=== PATIENT | female | born 1990 | race Caucasian/White ===

== ENCOUNTER 2019-06-19 02:57 | Observation (INO) ==
[2019-06-19] MEDS ORDERED: Ondansetron 4 MG/2 ML VIAL IVP STA (03:46)
[2019-06-19] MEDS: 0.9 % Sodium Chloride 1,000 ML IVC SCH ×2 (04:07→05:00)
[2019-06-19 04:28] LABS: Basophils % 0.3 %; Eosinophils # 0.1 K/mcL (0.0-0.6); Eosinophils % 1.7 %; Hematocrit 38.3 % (35.3-44.9); Hemoglobin 12.9 g/dL (11.5-15.4); Immature Granulocytes % 0.3 % (0-4); Lymphocytes # 1.6 K/mcL (0.6-4.6); Lymphocytes % 22.1 %; Mean Corpuscular HGB Conc 33.7 g/dL (31.6-35.5); Mean Corpuscular Hemoglobin 29.3 pg (28.0-33.3); Mean Corpuscular Volume 86.8 fL (83.0-100.0); Mean Platelet Volume 9.4 fL (9.4-12.4); Monocytes # 0.7 K/mcL (0.0-1.3); Monocytes % 9.3 %; Neutrophils # 4.7 K/mcL (1.6-8.9); Platelet Count 264 K/mcL (140-400); Red Blood Count 4.41 M/mcL (3.82-4.97); Red Cell Distribution Width 12.3 % (11.5-14.5); Segmented Neutrophils % 66.3 %
[2019-06-19 04:30] LABS: Bilirubin,Urine Negative (Negative); Blood,Urine Trace (Negative); Clarity,Urine Clear (Clear); Color,Urine Yellow (Yellow); Glucose,Urine (UA) Normal (Normal); Ketones,Urine Negative (Negative); Leukocyte Esterase,Urine Negative (Negative); Nitrite,Urine Negative (Negative); PH,Urine 7.5 pH Units (5.0-8.0); Protein,Urine Negative (Neg-Trace); Specific Gravity,Urine 1.009 (1.010-1.025); Urobilinogen,Urine Normal (Normal)
[2019-06-19 04:32] LABS: Bacteria,Urine None Seen per hpf (None-Few); Hyaline Casts,Urine None Seen per lpf (None-Few); RBC,Urine 0-3 per hpf (0-3); Squamous Epithelial Cell,Urine Many per lpf (None-Few); WBC,Urine 0-3 per hpf (0-3)
[2019-06-19 04:34] LABS: INR 0.9; Prothrombin Time 10.6 Seconds (9.4-12.1)
[2019-06-19] MEDS ORDERED: Isovue-370 500 ML BOTTLE IVP ONE (04:35)
[2019-06-19 04:36] LABS: Activated Partial Thrombo Time 27.5 Seconds (26.0-36.0)
[2019-06-19 05:56] LABS: Alanine Aminotransferase 19 Units/L (7-52); Albumin 3.6 g/dL (3.5-5.7); Albumin/Globulin Ratio 1.5 (1.1-2.2); Alkaline Phosphatase 49 Units/L (34-104); Aspartate Amino Transferase 20 Units/L (13-39); BUN/Creatinine Ratio 15 (6-26); Bilirubin,Indirect 0.3 mg/dL (0.0-1.0); Bilirubin,Total 0.3 mg/dL (0.3-1.0); Blood Urea Nitrogen 8 mg/dL (6-20); Calcium 8.2 mg/dL (8.6-10.3); Carbon Dioxide 22 mEq/L (23-29); Chloride 108 mEq/L (98-107); Globulin 2.4 g/dL (2.4-3.5); Glucose 88 mg/dL (70-105); Magnesium 1.5 mg/dL (1.6-2.6); Osmolality,Calculated 278 (280-300); Phosphorous 2.7 mg/dL (2.7-4.5); Potassium 3.5 mEq/L (3.5-5.1); Sodium 135 mEq/L (136-145); eGFR For African Americans > 60 (> 60); eGFR For Non-African Americans > 60 (> 60)
[2019-06-19 06:02] LABS: Adenovirus Not Detected (Not Detect); Bordetella Pertussis Not Detected (Not Detect); Chlamydophila pneumoniae Not Detected (Not Detect); Coronavirus 229E Not Detected (Not Detect); Coronavirus HKU1 Not Detected (Not Detect); Coronavirus NL63 Not Detected (Not Detect); Coronavirus OC43 Not Detected (Not Detect); Human Metapneumovirus Not Detected (Not Detect); Human Rhinovirus/Enterovirus Not Detected (Not Detect); Influenza A Subtype 2009 H1 Not Detected (Not Detect); Influenza B Not Detected (Not Detect); Mycoplasma pneumoniae Not Detected (Not Detect); Parainfluenza Virus 1 Not Detected (Not Detect); Parainfluenza Virus 2 Not Detected (Not Detect); Parainfluenza Virus 3 Not Detected (Not Detect); Parainfluenza Virus 4 Not Detected (Not Detect); Respiratory Syncytial Virus Not Detected (Not Detect)
[2019-06-19] MEDS ORDERED: Azithromycin 500 MG in D5% in Water 250 ML IVPB STA (06:07)
[2019-06-19] MEDS ORDERED: cefTRIAXone 1,000 MG in Water for inj. (sterile) 10 ML IVP ONE (06:07)
[2019-06-19] MEDS ORDERED: Naloxone 0.4 MG/ML INJ IVP PRN (07:48)
[2019-06-19] MEDS: Ondansetron 4 MG/2 ML VIAL IVP PRN (17:35)
[2019-06-19] MEDS: *HR* Heparin 5,000 UNIT/ML VIAL SQ SCH (17:36)
[2019-06-19] MEDS ORDERED: Acetaminophen 325 MG TABLET PO PRN (17:54)
[2019-06-19] MEDS: *HR* Promethazine 25 MG/ML VIAL IVP PRN (18:31)
[2019-06-20 01:09] LABS: Basophils % 0.4 %; Eosinophils # 0.2 K/mcL (0.0-0.6); Eosinophils % 3.9 %; Hematocrit 40.5 % (35.3-44.9); Hemoglobin 13.3 g/dL (11.5-15.4); Immature Granulocytes % 0.2 % (0-4); Lymphocytes # 1.9 K/mcL (0.6-4.6); Lymphocytes % 40.5 %; Mean Corpuscular HGB Conc 32.8 g/dL (31.6-35.5); Mean Corpuscular Hemoglobin 29.3 pg (28.0-33.3); Mean Corpuscular Volume 89.2 fL (83.0-100.0); Mean Platelet Volume 8.9 fL (9.4-12.4); Monocytes # 0.5 K/mcL (0.0-1.3); Monocytes % 11.1 %; Platelet Count 262 K/mcL (140-400); Red Blood Count 4.54 M/mcL (3.82-4.97); Red Cell Distribution Width 12.7 % (11.5-14.5); Segmented Neutrophils % 43.9 %; White Blood Count 4.6 K/mcL (4.3-11.1)
[2019-06-20 01:29] LABS: BUN/Creatinine Ratio 10 (6-26); Blood Urea Nitrogen 7 mg/dL (6-20); Calcium 9.2 mg/dL (8.6-10.3); Carbon Dioxide 25 mEq/L (23-29); Chloride 106 mEq/L (98-107); Glucose 88 mg/dL (70-105); Magnesium 2.3 mg/dL (1.6-2.6); Osmolality,Calculated 281 (280-300); Potassium 3.6 mEq/L (3.5-5.1); Sodium 137 mEq/L (136-145); eGFR For African Americans > 60 (> 60); eGFR For Non-African Americans > 60 (> 60)
[2019-06-20] MEDS: Ondansetron 4 MG/2 ML VIAL IVP PRN (06:21)
[2019-06-20] MEDS: *HR* Heparin 5,000 UNIT/ML VIAL SQ SCH (06:21)
[2019-06-20] MEDS ORDERED: Azithromycin 500 MG in 0.9 % Sodium Chloride 250 ML IVPB SCH (08:00)
[2019-06-20] MEDS: *HR* Promethazine 25 MG/ML VIAL IVP PRN (08:18)
[2019-06-20] MEDS ORDERED: cefTRIAXone 2,000 MG in 0.9 % Sodium Chloride Mini Bag 100 ML IVPB SCH (09:00)
[2019-06-20] MEDS ORDERED: Sennosides/Docusate Sodium TABLET PO SCH (11:05)
[2019-06-20] MEDS: 0.9 % Sodium Chloride 1,000 ML IVC SCH ×2 (12:16→14:17)
[2019-06-20 14:30] VITALS: BP 99/66
[2019-06-22 10:22] LABS: Mycoplasma pneumoniae IgG 0.11 U/L (<=0.09)
== END 2019-06-20 15:04 | disposition home or self-care (01) ==
LOC: 2NENU 02:57 → EMEROOARM 02:57 → SUATTDRO 07:48 → 2NENU 08:31 → 2NNU 21:56 → 3BNU 06-20 11:03
PROVIDERS: ADMIT Internal Medicine; ATTEND Internal Medicine

== ENCOUNTER 2022-01-24 16:37 | Observation (INO) ==
[2022-01-24] MEDS ORDERED: 0.9 % Sodium Chloride 1,000 ML IV ONE (20:56)
[2022-01-24 21:20] LABS: Basophils # 0.1 K/mcL (0.0-0.2); Basophils % 0.9 %; Eosinophils % 0.5 %; Hematocrit 41.4 % (35.3-44.9); Immature Granulocytes % 0.2 % (0-4); Lymphocytes # 2.8 K/mcL (0.6-4.6); Lymphocytes % 35.1 %; Mean Corpuscular HGB Conc 33.8 g/dL (31.6-35.5); Mean Corpuscular Volume 88.7 fL (83.0-100.0); Monocytes # 0.6 K/mcL (0.0-1.3); Neutrophils # 4.6 K/mcL (1.6-8.9); Platelet Count 327 K/mcL (140-400); Red Blood Count 4.67 M/mcL (3.82-4.97); Red Cell Distribution Width 11.9 % (11.5-14.5); Segmented Neutrophils % 56.3 %; White Blood Count 8.1 K/mcL (4.3-11.1)
[2022-01-24 21:45] LABS: Alanine Aminotransferase 15 Units/L (7-52); Albumin 4.5 g/dL (3.5-5.7); Albumin/Globulin Ratio 1.5 (1.1-2.2); Alkaline Phosphatase 57 Units/L (34-104); Aspartate Amino Transferase 21 Units/L (13-39); BUN/Creatinine Ratio 13 (6-26); Bilirubin,Total 0.6 mg/dL (0.3-1.0); Blood Urea Nitrogen 11 mg/dL (6-20); Carbon Dioxide 25 mEq/L (23-29); Chloride 101 mEq/L (98-107); Glucose 87 mg/dL (70-105); Lipase 32 Units/L (11-82); Osmolality,Calculated 281 (280-300); Potassium 3.9 mEq/L (3.5-5.1); Sodium 136 mEq/L (136-145); Total Protein 7.5 g/dL (6.4-8.9); Troponin I < 0.03 ng/mL (< 0.04)
[2022-01-24] MEDS: Ondansetron ODT 4 MG TAB.RAPDIS SL ONE ×2 (22:26→22:29)
[2022-01-24] MEDS ORDERED: Iopamidol - 370 500 ML MLS IVP ONE (22:32)
[2022-01-24] MEDS ORDERED: Morphine Sulfate 2 MG/ML SYRINGE IVP ONE ×2 (22:35→23:41)
[2022-01-24] MEDS ORDERED: Ondansetron 4 MG/2 ML VIAL IVP ONE (22:38)
[2022-01-24] MEDS ORDERED: Famotidine 20 MG/2 ML VIAL IVP ONE (22:38)
[2022-01-24 22:58] LABS: Bilirubin,Urine Negative (Negative); Blood,Urine Trace (Negative); Clarity,Urine Ex.Turbid (Clear); Color,Urine Yellow (Yellow); Glucose,Urine (UA) Normal (Normal); Ketones,Urine Trace mg/dL (Negative); Leukocyte Esterase,Urine Negative (Negative); Mucus,Urine Few per lpf (None-Few); Nitrite,Urine Negative (Negative); PH,Urine 7.5 pH Units (5.0-8.0); Protein,Urine 30 mg/dL (Neg-Trace); Specific Gravity,Urine 1.026 (1.010-1.025); Squamous Epithelial Cell,Urine Few per hpf (None-Few)
[2022-01-24] MEDS ORDERED: *HR* Promethazine 25 MG/ML VIAL IM ONE (23:42)
[2022-01-25] MEDS ORDERED: 0.9 % Sodium Chloride 1,000 ML IVC ONE (01:13)
[2022-01-25] MEDS ORDERED: Metoclopramide 10 MG/2 ML VIAL IVP ONE (01:13)
[2022-01-25] MEDS ORDERED: *HR* LORazepam 2 MG/ML VIAL IVP ONE (01:42)
[2022-01-25] MEDS ORDERED: Naloxone 0.4 MG/ML INJ IVP PRN (01:53)
[2022-01-25] MEDS ORDERED: Ringers Solution, Lactated 500 ML IVC ONE (04:15)
[2022-01-25 05:47] LABS: Adenovirus Not Detected (Not Detect); Bordetella Pertussis Not Detected (Not Detect); Chlamydophila pneumoniae Not Detected (Not Detect); Coronavirus 229E Not Detected (Not Detect); Coronavirus HKU1 Not Detected (Not Detect); Coronavirus NL63 Not Detected (Not Detect); Coronavirus OC43 Not Detected (Not Detect); Human Metapneumovirus Not Detected (Not Detect); Human Rhinovirus/Enterovirus Not Detected (Not Detect); Influenza A Subtype 2009 H1 Not Detected (Not Detect); Influenza B Not Detected (Not Detect); Mycoplasma pneumoniae Not Detected (Not Detect); Parainfluenza Virus 1 Not Detected (Not Detect); Parainfluenza Virus 2 Not Detected (Not Detect); Parainfluenza Virus 3 Not Detected (Not Detect); Parainfluenza Virus 4 Not Detected (Not Detect); Respiratory Syncytial Virus Not Detected (Not Detect); SARS-CoV-2 Not Detected (Not Detect)
[2022-01-25 07:55] LABS: BUN/Creatinine Ratio 12 (6-26); Blood Urea Nitrogen 10 mg/dL (6-20); Calcium 8.5 mg/dL (8.6-10.3); Carbon Dioxide 26 mEq/L (23-29); Chloride 108 mEq/L (98-107); Glucose 73 mg/dL (70-105); Osmolality,Calculated 286 (280-300); Potassium 3.6 mEq/L (3.5-5.1); Sodium 139 mEq/L (136-145)
[2022-01-25 07:56] LABS: Troponin I < 0.03 ng/mL (< 0.04)
[2022-01-25 08:10] LABS: Hematocrit 37.5 % (35.3-44.9); Mean Corpuscular HGB Conc 32.5 g/dL (31.6-35.5); Mean Corpuscular Hemoglobin 29.9 pg (28.0-33.3); Mean Corpuscular Volume 91.9 fL (83.0-100.0); Platelet Count 279 K/mcL (140-400); Red Blood Count 4.08 M/mcL (3.82-4.97); Red Cell Distribution Width 12.2 % (11.5-14.5); White Blood Count 6.9 K/mcL (4.3-11.1)
[2022-01-25 08:26] LABS: Hemoglobin 12.2 g/dL (11.5-15.4)
[2022-01-25] MEDS ORDERED: Acetaminophen IV 500 MG/50 ML BAG IVPB ONE (09:45)
[2022-01-25] MEDS: Pantoprazole 40 MG VIAL IVP SCH ×2 (10:35→16:56)
[2022-01-25 11:05] LABS: Amphetamine Screen,Urine Negative ng/mL (Cutoff=1000); Barbiturate Screen,Urine Positive ng/mL (Cutoff=200); Benzodiazepines Screen,Urine Negative ng/mL (Cutoff=200); Cannabinoid Screen,Urine Negative ng/mL (Cutoff = 50); Cocaine Screen,Urine Negative ng/mL (Cutoff= 300); Opiate Screen,Urine Negative ng/mL (Cutoff=300); Phencyclidine Screen,Urine Negative ng/mL (Cutoff=25)
[2022-01-25] MEDS: *HR* Heparin 5,000 UNIT/ML VIAL SQ SCH ×3 (11:56→21:05)
[2022-01-25] MEDS ORDERED: Lidocaine -MPF 2% 2 ML VIAL ONE (14:56)
[2022-01-25] MEDS ORDERED: *HR* OxyCODONE/APAP 5/325 TABLET PO PRN (17:17)
[2022-01-25] MEDS: Stomatitis Mixture 5 ML UDC PO SCH ×2 (18:50→21:05)
[2022-01-25 19:41] VITALS: BP 134/93; PULSE 105; TEMP 99.1; O2SAT 97
== END 2022-01-25 23:59 | disposition other institution (70) ==
LOC: 3BNU 16:37 → EMEROOARM 16:37 → SUATTDRO 01-25 11:13 → 3BNU 01-25 12:19
PROVIDERS: ADMIT Internal Medicine; ATTEND Internal Medicine
PROC: ENDOORB (2022-01-25 14:45)